=== PATIENT | female | born 1995 | race American Indian/Alaskan Native ===

== ENCOUNTER 2017-03-21 12:17 | Emergency (ER) | payer SELFPAY ==
[2017-03-21 12:33] VITALS: BP 150/79
[2017-03-21] MEDS ORDERED: FUL-GLO OP ONE (14:44)
[2017-03-21] MEDS ORDERED: TETRACAINE 0.5% OU STA (14:44)
--- NOTE | 2017-03-21 15:28 | Emergency Department Report ---
ED General Adult HPI - General Chief complaint: Eye Problems Stated complaint: POSS PINK EYE Time Seen by Provider: 03/21/17 14:37 Source: patient Mode of arrival: Ambulatory Limitations: No Limitations - History of Present Illness Initial comments: PT c/o rash to face x 3 weeks. pt states the rash itches and gradually getting worse. PT states the rash does not hurt. PT states she is allergic to cats and cats live outside of her current residence. PT states sometimes when she goes outside, she will see a cat in the walkway. Other than that, pt can not think of anything that would trigger a rash. no close contacts with rash PT states she thinks she has had pink eye for the last week. PT reports R eye drainage, crusting, and redness. PT states she wears contacts and she has taken her contact out of her R eye. PT did not bring her glasses with her today. PT denies any pmh. MD Complaint: rash, pink eye -: Gradual, week(s) (rash x 3 weeks, and eye redness x 1 ) Location: face (and R eye ) Radiation: non-radiation Severity scale (0 -10): 1 Quality: aching Consistency: constant Improves with: none Worsens with: none Associated Symptoms: rash. denies: fever/chills, loss of appetite, nausea/ vomiting Treatments Prior to Arrival: none - Related Data Previous Rx's Medication Instructions Recorded Last Taken Type Cephalexin [Keflex] 500 mg PO Q6HR #40 capsule 03/21/17 Unknown Rx Mupirocin [Bactroban 2%] 1 applic TP TID 5 Days 03/21/17 Unknown Rx Tobramycin 0.3% [Tobrex] 2 drop OD Q8HR 7 Days 03/21/17 Unknown Rx hydrOXYzine PAMOATE [Vistaril] 25 mg PO Q6HR PRN #12 capsule 03/21/17 Unknown Rx Allergies Allergy/AdvReac Type Severity Reaction Status Date / Time No Known Allergies Allergy Unverified 03/21/17 12:30 ED Review of Systems ROS: Stated complaint: POSS PINK EYE Other details as noted in HPI Comment: All other systems reviewed and negative Constitutional: denies: chills, fever Eyes: as per HPI, eye discharge ENT: denies: ear pain, throat pain Respiratory: denies: cough, shortness of breath Gastrointestinal: denies: abdominal pain, nausea, vomiting Skin: as per HPI, rash, change in color ED Past Medical Hx - Past Medical History Previous Medical History?: No - Surgical History Past Surgical History?: No - Social History Smoking Status: Current Every Day Smoker Substance Use Type: Non Opiate Pain - Medications Home Medications: Home Medications Medication Instructions Recorded Confirmed Last Taken Type Cephalexin [Keflex] 500 mg PO Q6HR #40 capsule 03/21/17 Unknown Rx Mupirocin [Bactroban 2%] 1 applic TP TID 5 Days 03/21/17 Unknown Rx Tobramycin 0.3% [Tobrex] 2 drop OD Q8HR 7 Days 03/21/17 Unknown Rx hydrOXYzine PAMOATE [Vistaril] 25 mg PO Q6HR PRN #12 capsule 03/21/17 Unknown Rx ED Physical Exam - General Limitations: No Limitations General appearance: alert, in no apparent distress - Head Head exam: Present: atraumatic, normocephalic, other (rash noted to chin that spreads up jaw) - Eye Eye exam: Present: PERRL, EOMI, conjunctival injection (R). Absent: periorbital swelling, periorbital tenderness Pupils: Present: normal accommodation - Expanded Eye Exam Expanded Eyelids: Normal Inspection: Left, Erythema: Right Pupils: Regular, Round: Bilateral Sclera/Conjunctival: Normal Inspection: Left, Injection: Right Anterior chamber: Normal Inspection: Bilateral With correction: No - ENT ENT exam: Present: normal exam, normal orophraynx, mucous membranes moist, TM's normal bilaterally, normal external ear exam - Neck Neck exam: Present: normal inspection, full ROM. Absent: lymphadenopathy - Respiratory Respiratory exam: Present: normal lung sounds bilaterally. Absent: respiratory distress - Cardiovascular Cardiovascular Exam: Present: regular rate, normal rhythm - GI/Abdominal GI/Abdominal exam: Present: soft. Absent: tenderness - Extremities Exam Extremities exam: Present: normal inspection, full ROM - Back Exam Back exam: Present: normal inspection, full ROM - Neurological Exam Neurological exam: Present: alert, oriented X3 - Psychiatric Psychiatric exam: Present: normal affect, normal mood - Skin Skin exam: Present: warm, rash, erythema - Expanded Skin Exam Expanded Type of lesion: Present: rash Distribution of rash: face Description of rash: Present: erythematous, macular, papular, crusting, discharge, other (pt's rash appears to have a secondary bacterial infection at this time. ). Absent: vesicular, blisters, bullous, petechial, purpuic, fluctuant, indurated ED Course Vital Signs 03/21/17 12:30 Temperature 98.5 F Pulse Rate 86 Respiratory 20 Rate Blood Pressure 150/79 O2 Sat by Pulse 100 Oximetry - Reevaluation(s) Reevaluation #1: 03/21/17 15:31 PT aware no abrasion or fb seen on Wood's lamp exam. PT aware she should not wear her contacts at this time. - Eye Procedure Alcaine Drops Administered: Yes Eye FB Removal: other (no fb seen ) Progress: no corneal fb, ulcer, or abrasion seen on wood's lamp exam - Pulse Oximetry Interpretation Digit-Finger Initial Pulse Oximetry Readin Actions Taken: none ED Medical Decision Making - Differential Diagnosis corneal abrasion, fb, conjunctivitis, contact dermatitis Critical Care Time: No Critical care attestation.: If time is entered above; I have spent that time in minutes in the direct care of this critically ill patient, excluding procedure time. ED Disposition Clinical Impression: Dermatitis Conjunctivitis Qualifiers: Conjunctivitis type: acute Acute conjunctivitis type: unspecified Laterality: right Qualified Code(s): H10.31 - Unspecified acute conjunctivitis, right eye Cellulitis Qualifiers: Site of cellulitis: face Qualified Code(s): L03.211 - Cellulitis of face Disposition: DC-01 TO HOME OR SELFCARE Is pt being admited?: No Does the pt Need Aspirin: No Condition: Stable Instructions: Impetigo (ED), Contact Dermatitis (ED), Cellulitis (ED), Conjunctivitis (ED), Folliculitis (ED) Additional Instructions: Good hand hygiene Throw out your Right contact. Do not wear contacts at this time Follow up with your Eye doctor in the next 2-3 days Follow up with a certified medical coder in the next 3-5 days Return to the ED if worsening or concerns. No driving or ETOH after taking vistaril continue to avoid known allergens (CATs) Prescriptions: Cephalexin [Keflex] 500 mg PO Q6HR #40 capsule hydrOXYzine PAMOATE [Vistaril] 25 mg PO Q6HR PRN #12 capsule PRN Reason: Itching Mupirocin [Bactroban 2%] 1 applic TP TID 5 Days Tobramycin 0.3% [Tobrex] 2 drop OD Q8HR 7 Days Referrals: PRIMARY CAREMD [Primary Care Provider] - 3-5 Days MELANY NORRIS MD [Staff Physician] - 3-5 Days [facility] [Outside] - 3-5 Days [facility] [Outside] - 3-5 Days Time of Disposition: 15:38
== END 2017-03-21 15:56 | disposition home or self-care (01) ==
LOC: ED 12:17
DX: L30.9 Dermatitis, unspecified (principal); H10.31 Unspecified acute conjunctivitis, right eye; L03.211 Cellulitis of face; F17.200 Nicotine dependence, unspecified, uncomplicated
CPT/HCPCS: 99283